=== PATIENT | male | born 1940 | race Caucasian/White ===

== ENCOUNTER 2016-07-31 05:30 | Inpatient (IN) | payer OTHER ==
[~2016-07-31] VITALS: Ht 185.4 cm; Wt 99.6 kg
[~2016-07-31 05:30] MED LIST: AMLO10TA4 PO; ASCO500T7 PO; ASPI-496 PO; ATOR40TA PO; EZET10TA3 PO; IBUP800T PO; INDO75CA PO; IRBE150T49 PO; MULT-82 PO; OXYC-302 PO; POLY1DRO TP; POTASSIUM PO; QUIN324C PO; SILD100T PO; TEST5GEL TP; VIT1CAPS16 PO; [UNRECOGNIZED DRUG - OTHER] PO; [UNRECOGNIZED DRUG - OTHER] PO
[2016-07-31] MEDS ORDERED: LACTATED RINGERS 1,000 ML IV SCH (06:20)
[2016-07-31 06:21] VITALS: BP 148/84
[2016-07-31] MEDS ORDERED: LIDOCAINE 1%, 2ML SQ PRN (06:30)
[2016-07-31] MEDS ORDERED: GENTAMICIN 80 MG/2 ML ONE ×2 (06:37→07:48)
[2016-07-31] MEDS ORDERED: LIDOCAINE/PF 1%-EPI 1:200K, 30ML ONE (06:37)
[2016-07-31] MEDS ORDERED: BUPIVACAINE/PF-EPI 0.5% 1:200K ONE (06:37)
[2016-07-31] MEDS ORDERED: BACITRACIN 50,000 UNIT ONE (06:37)
[2016-07-31] MEDS ORDERED: KETAMINE 10 MG/ML, 20ML ONE (07:16)
[2016-07-31] MEDS ORDERED: FENTANYL PF 250 MCG/5ML ONE (07:16)
[2016-07-31] MEDS ORDERED: HYDROmorphone 1 MG/ML, 1ML ONE (07:16)
[2016-07-31] MEDS ORDERED: NALO25TA PO (07:16)
[2016-07-31] MEDS ORDERED: EPHEDRINE 50 MG/ML, 1ML ONE (07:48)
[2016-07-31] MEDS ORDERED: PROPOFOL 10 MG/ML, 20ML ONE (07:48)
[2016-07-31] MEDS ORDERED: ROCURONIUM 10 MG/ML ONE (07:48)
[2016-07-31] MEDS ORDERED: PROPOFOL 10 MG/ML, 50ML ONE (07:48)
[2016-07-31] MEDS ORDERED: CEFAZOLIN 1,000 MG ONE (07:48)
[2016-07-31] MEDS ORDERED: DEXAMETHASONE 4 MG/ML, 1ML ONE (07:48)
[2016-07-31] MEDS ORDERED: SUCCINYLCHOLINE 20 MG/ML, 10ML ONE (07:48)
[2016-07-31] MEDS ORDERED: ONDANSETRON 2MG/ML, 2ML ONE (07:48)
[2016-07-31] MEDS ORDERED: LABETALOL 5MG/ML, 20ML IV PRN ×2 (08:00→13:30)
[2016-07-31] MEDS ORDERED: hydrALAzine 20 MG/ML, 1ML IV PRN (08:00)
[2016-07-31] MEDS ORDERED: EPHEDRINE 50 MG/ML, 1ML IVPush PRN (08:00)
[2016-07-31] MEDS ORDERED: PROMETHAZINE 25 MG/ML, 1ML IV PRN (08:00)
[2016-07-31] MEDS ORDERED: ONDANSETRON 2MG/ML, 2ML IVPush PRN (08:00)
[2016-07-31] MEDS ORDERED: ACETAMINOPHEN 325 MG TABLET PO PRN (08:00)
[2016-07-31] MEDS ORDERED: FENTANYL PF 100 MCG/2ML IV PRN (08:00)
[2016-07-31] MEDS ORDERED: HYDROcodone/APAP 7.5-325MG/15ML UDC PO PRN (08:00)
[2016-07-31] MEDS ORDERED: HYDROmorphone 2 MG/ML, 1ML ONE (10:20)
[2016-07-31] MEDS ORDERED: OXYcodone 5 MG/5 ML ORAL.SOL UDC ONE ×2 (10:20→10:54)
[2016-07-31] MEDS ORDERED: ACETAMINOPHEN 325 MG TABLET ONE (10:20)
[2016-07-31] MEDS: OXYcodone 5 MG/5 ML ORAL.SOL UDC PO PRN ×2 (10:22→10:59)
[2016-07-31] MEDS: HYDROmorphone 1 MG/ML, 1ML IV PRN ×4 (10:26→10:53)
[2016-07-31] MEDS ORDERED: DIAZEPAM 5 MG/ML, 2ML ONE (11:01)
[2016-07-31] MEDS: DIAZEPAM 5 MG/ML, 2ML IV PRN ×2 (11:15→11:56)
[2016-07-31] MEDS ORDERED: DEXAMETHASONE 4 MG/ML, 1ML IVPush STA (11:16)
[2016-07-31] MEDS ORDERED: DEXAMETHASONE 4 MG/ML, 5ML ONE (11:19)
[2016-07-31] MEDS ORDERED: DIAZEPAM 5 MG TABLET PO PRN (13:30)
[2016-07-31] MEDS ORDERED: OXYcodone/APAP 10/325MG TABLET PO PRN (13:30)
[2016-07-31] MEDS ORDERED: DIPHENHYDRAMINE 50 MG/ML, 1ML IM PRN (13:30)
[2016-07-31] MEDS ORDERED: ACETAMINOPHEN 500 MG TABLET PO PRN (13:30)
[2016-07-31] MEDS ORDERED: DIPHENHYDRAMINE 50 MG/ML, 1ML IVPush PRN (13:30)
[2016-07-31] MEDS ORDERED: MAGNESIUM HYDROXIDE 8%, 30ML UDC PO PRN (13:30)
[2016-07-31] MEDS ORDERED: PROMETHAZINE 25 MG/ML, 1ML IM PRN (13:30)
[2016-07-31] MEDS ORDERED: PROMETHAZINE 12.5 MG SUPP PR PRN ×2 (13:30→13:31)
[2016-07-31] MEDS ORDERED: HYDROmorphone 1 MG/ML, 1ML IM PRN (13:30)
[2016-07-31] MEDS ORDERED: DIAZEPAM 5 MG/ML, 2ML IV PRN (13:30)
[2016-07-31] MEDS ORDERED: DIPHENHYDRAMINE 50 MG CAPSULE PO PRN (13:30)
[2016-07-31] MEDS ORDERED: BISACODYL 10 MG SUPP PR PRN (13:30)
[2016-07-31] MEDS: LACTATED RINGERS 1,000 ML IV SCH ×2 (15:41→23:08)
[2016-07-31] MEDS: CEFAZOLIN PMX 1GM/50ML 50 ML IV SCH (15:41)
[2016-07-31 20:00] VITALS: BP 103/57
[2016-07-31] MEDS ORDERED: ZOLPIDEM 5MG TABLET PO PRN (21:00)
[2016-08-01] MEDS: CEFAZOLIN PMX 1GM/50ML 50 ML IV SCH ×2 (00:08→08:21)
[2016-08-01 00:13] VITALS: BP 142/76
[2016-08-01 03:46] VITALS: BP 135/78
[2016-08-01 06:51] VITALS: BP 124/65
[2016-08-01] MEDS: LACTATED RINGERS 1,000 ML IV SCH (08:00)
[2016-08-01] MEDS ORDERED: SENNA/DOCUSATE TABLET PO SCH (09:00)
[2016-08-01 12:58] VITALS: BP 120/68
[2016-08-01] MEDS ORDERED: OXYC-229 PO (15:47)
== END 2016-08-01 15:55 | disposition home or self-care (01) | DRG 460 ==
LOC: ORIP 05:30 → 4NOR 13:08 → DCLOUNGE 08-01 15:01
PROVIDERS: ADMIT Orthopaedic Surgery Orthopaedic Surgery of the Spine; ATTEND Orthopaedic Surgery Orthopaedic Surgery of the Spine
PROC: 4A11X4G Monitoring of Peripheral Nervous Electrical Activity, Intraoperative, External Approach (ICD-10-PCS; 2016-07-31)
PROC: 0SG804Z Fusion of Left Sacroiliac Joint with Internal Fixation Device, Open Approach (ICD-10-PCS; principal; 2016-07-31 07:30)
DX: M46.1 Sacroiliitis, not elsewhere classified (principal); M53.3 Sacrococcygeal disorders, not elsewhere classified; G47.30 Sleep apnea, unspecified; E78.5 Hyperlipidemia, unspecified; I10 Essential (primary) hypertension; Z96.612 Presence of left artificial shoulder joint; Z96.611 Presence of right artificial shoulder joint; Z96.652 Presence of left artificial knee joint; M47.896 Other spondylosis, lumbar region; Z98.1 Arthrodesis status
CPT/HCPCS: 72202; J0690; J1100; J1170; J2405; J2550; J2704; J3010; J3360; J3490; C1776; J0330; J1580; J7120

== ENCOUNTER → 2019-04-06 | Outpatient (CLI) | payer OTHER, MEDICARE ==
[~2019-04-06] MED LIST changes: -EZET10TA3 PO; +EZET10TA70 PO; +IBUP-1223 PO; -IBUP800T PO; -INDO75CA PO; +INDO75CA3 PO; +MULT-642 PO; -MULT-82 PO; +NALO25TA PO; +OXYC-307 PO
== END | disposition home or self-care (01) ==
LOC: RAD 08:20
PROVIDERS: ATTEND Internal Medicine Gastroenterology
DX: K22.8 Other specified diseases of esophagus (principal); R05 Cough; I10 Essential (primary) hypertension; E78.5 Hyperlipidemia, unspecified; Z98.890 Other specified postprocedural states; Z79.899 Other long term (current) drug therapy
CPT/HCPCS: 74241